=== PATIENT | male | born 1945 | race Caucasian/White ===

== ENCOUNTER 2021-06-26 08:47 | Emergency (ER) | payer OTHER ==
[~2021-06-26] VITALS: Ht 172.7 cm; Wt 81.1 kg
--- NOTE | 2021-06-26 08:50 | PHYS DOC ---
Adult General HPI HPI Patient is a 75-year-old male presenting via EMS for fall. Onset was just prior to arrival at home. Reports it was mechanical in nature, states he was trying to get up out of bed and got tangled on oxygen wires, lost his footing and subsequently fell towards left side. Reports he hit left shoulder and subsequently his left head. No reported loss of consciousness and denies any anticoagulant use but patient admitted bleeding and obvious ear trauma from fall. Because of this, EMS was contacted. On arrival, patient found to be hemodynamically stable on typical 2 L nasal cannula oxygen which he uses daily for COPD. Bleeding controlled with direct pressure prior to arrival, no end of the intervention required during transport to our facility Review of Systems Review of Systems Fourteen body systems of review of systems have been reviewed. See HPI for pertinent positives and negative responses, other rice all other systems are negative, non-pertinent or non-contributory Physical Exam Physical Exam Constitutional: Well developed, well nourished, no acute distress, non-toxic appearance. HENT: Normocephalic, atraumatic, left external ear with avulsion present to middle third of helix that does not protrude into antitragus area, oropharynx moist, no oral exudates, nose normal with nasal cannula in place. Eyes: PERRLA, EOMI, conjunctiva normal, no discharge. Neck: Normal range of motion, no tenderness, supple, no stridor. Cardiovascular: Heart rate regular, sinus rhythm, no murmurs rubs or gallops Lungs & Thorax: Bilateral breath sounds clear to auscultation Abdomen: Bowel sounds normal, soft, no tenderness, no masses, no pulsatile mas ses. Nonsurgical abdomen, no peritoneal signs Skin: Warm, dry, no erythema, no rash. Back: No tenderness, no CVA tenderness. Extremities: No tenderness, no cyanosis, no clubbing, ROM intact, no edema. Changes in hands consistent with rheumatoid arthritis Neurologic: Alert and oriented X 3, cranial nerves II through XII intact, normal motor & sensory function, no focal deficits noted. Psychologic: Affect normal, judgement normal, mood normal. Current Patient Data Vital Signs Vital Signs Date Time Temp Pulse Resp B/P (MAP) Pulse Ox O2 Delivery O2 Flow Rate FiO2 06/26/21 09:07 97.8 89 20 160/90 (113) 96 Nasal Cannula Vital Signs Date Time Temp Pulse Resp B/P (MAP) Pulse Ox O2 Delivery O2 Flow Rate FiO2 06/26/21 09:07 97.8 89 20 160/90 (113) 96 Nasal Cannula EKG EKG [] Radiology/Procedures Radiology/Procedures AP chest, right shoulder 3 views. HISTORY: Fall on the left side with left shoulder pain AP chest AP view was taken of the chest. There is no pneumothorax or pleural effusion. Lungs are free of infiltrates. Heart is normal in size. Mediastinum is not widened. A clavicle fracture is not identified. Left shoulder 3 views were taken left shoulder. 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 There is rotator cuff degeneration with loss of the space between the humeral head and acromium. There is no acute fracture or dislocation in the left shoulder. IMPRESSION: 1. 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 2. No fracture or dislocation left shoulder. 3. No pneumothorax or pleural effusion 4. No acute infiltrates. Electronically signed by: Kareem Rodriguez MD (06/26/2021 9:57 AM) [facility] //////////////////////////// CT brain without contrast. HISTORY: Fall, trauma left temporal external ear injury CT scan of brain was done without contrast. There is no old study for [facility]. Patient's had a previous large posterior craniotomy. An acute skull fracture is not identified. Sinuses are clear. There is edema in the parietal region on the right. A mass is possible. Correlation with old images or MRI would be recommended. Ventricles are normal in size. There is no shift of the midline. There is slight density along the falx which could be chronic or a small amount of acute subdural. MRI could be of benefit. IMPRESSION: 1. Large craniotomy defect posteriorly. 2. Possible mass near the craniotomy defect versus postop changes, correlation with an old study would be of benefit, MRI could be of benefit. 3. Edema versus encephalomalacia of the parietal lobe on each side. 4. Slight thickening along the falx possibly chronic although minimal hemorrhage is possible. 5. No other evidence of acute intracranial hemorrhage. Heart Score C/O Chest Pain: No Risk Factors: Risk Factors: DM, Current or recent (<one month) smoker, HTN, HLP, family history of CAD, obesity. Risk Scores: Risk Factors: DM, Current or recent (<one month) smoker, HTN, HLP, family history of CAD, obesity. Course & Med Decision Making Course & Med Decision Making ABCs unremarkable HPI physical exam and ER work-up nonconcerning for any emergent or surgical issues I disclosed with patient, and daughter at bedside need for close outpatient follow-up regarding indeterminant CT head imaging for potential mass versus postsurgical changes and findings of likely chronic left rotator cuff tear Joint decision made to pursue suturing of left ear, risks versus benefits and potential for nonunion/inadequate healing due to avascular nature of cartilage discussed at length. Patient is here sutured with satisfactory wound cosmesis Patient reports he has follow-up previously scheduled with his outpatient PC[facility] at the [facility] tomorrow, I advised him to keep this. Tetanus updated. No indication for antibiotics. Strict return precautions discussed at length prior to ER departure Dragon Disclaimer Dragon Disclaimer This electronic medical record was generated, in whole or in part, using a voice recognition dictation system. Laceration Repair Lac Repair Laceration #1: 2.5 centimeter linear wound of left ear. A time out was undertaken to determine that this was the correct patient and the correct procedure for this patient. The patients laceration was prepped and cleansed in the usual fashion. It was then copiously irrigated with normal saline with high pressure and high volume. 2 cc 2% lidocaine administered for anesthetic purposes The wound was explored in a clear and bloodless field to the base of the wound. There was no evidence of underlying fracture or foreign body. x6 6.0 sutures were placed in a simple interrupted fashion to close the wound. Excellent care was taken to achieve maximal cosmesis. The patient tolerated this procedure well there were no observed nor reported complications. Departure Departure: Impression: Primary Impression: Ear lobe laceration Additional Impressions: Hx of brain cancer Left shoulder pain Disposition: HOME / SELF CARE / HOMELESS Condition: STABLE Referrals: PCP,PEE (PCP) Additional Instructions: As discussed prior to ER departure, your vitals, physical exam and comprehensive ER work-up were concerning for left earlobe laceration that was repaired with tetanus shot updated today. You need to follow-up with your primary care physician on this for suture removal in upcoming 3 to 5 days. You are also f ound to have obvious brain changes given your history of brain cancer status post surgical intervention, there is no acute intracranial abnormalities noted today but concern about underlying mass versus typical postoperative changes with recommendations for outpatient MRI. This needs to be followed up with your primary care physician. Lastly, you complained of left shoulder pain, there were no bony abnormalities noted on chest and/or left shoulder radiographs but there was concerning findings for torn rotator cuff. This needs to be followed up with your primary care physician in the outpatient setting. You note you [facility], please keep this and review ER visit today. If any concerning signs or symptoms present prior to outpatient follow- up please not hesitate to come back for repeat evaluation. It was a pleasure to take care of you and I wish you the best going forward Problem Qualifiers HARSHA NELSON DO Jun 26, 2021 08:50
[2021-06-26 09:07] VITALS: BP 160/90
[2021-06-26] MEDS ORDERED: LIDOCAINE 2% 20 ML VIAL. ONE (09:27)
[2021-06-26] MEDS ORDERED: LIDOCAINE 2% 20 ML VIAL. IJ ONE (09:45)
--- NOTE | 2021-06-26 10:00 | RAD ---
AP chest, right shoulder 3 views. HISTORY: Fall on the left side with left shoulder pain AP chest AP view was taken of the chest. There is no pneumothorax or pleural effusion. Lungs are free of infil trates. Heart is normal in size. Mediastinum is not widened. A clavicle fracture is not identified. Left shoulder 3 views were taken left shoulder. 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 There is rotator cuff degeneration with loss of the space between the humeral head and acromium. There is no acute fracture or dislocation in the left shoulder. IMPRESSION: 1. 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 2. No fracture or dislocation left shoulder. 3. No pneumothorax or pleural effusion 4. No acute infiltrates. Electronically signed by: Kareem Rodriguez MD (06/26/2021 9:57 AM) [facility]
--- NOTE | 2021-06-26 10:04 | RAD ---
CT brain without contrast. HISTORY: Fall, trauma left temporal external ear injury CT scan of brain was done without contrast. There is no old study for comparison. Patient's had a pre vious large posterior craniotomy. An acute skull fracture is not identified. Sinuses are clear. There is edema in the parietal region on the right. A mass is possible. Correlation with old images or MRI would be recommended. Ventricles are normal in size. There is no shift of the midline. There is slig ht density along the falx which could be chronic or a small amount of acute subdural. MRI could be of benefit. IMPRESSION: 1. Large craniotomy defect posteriorly. 2. Possible mass near the craniotomy defect versus postop changes, correlation with an old study woul d be of benefit, MRI could be of benefit. 3. Edema versus encephalomalacia of the parietal lobe on each side. 4. Slight thickening along the falx possibly chronic although minimal hemorrhage is possible. 5. No other evidence of acute intracranial hemorrhage. PQRS Compliance Statement: One or more of the following individualized dose reduction techniques were utilized for this examinat ion: 1. Automated exposure control 2. Adjustment of the mA and/or kV according to patient size 3. Use of iterative reconstruction technique Electronically signed by: Kareem Rodriguez MD (06/26/2021 10:02 AM) [facility]
[2021-06-26] MEDS ORDERED: DIPHTH,PERTUSS(ACELL),TET TOX 0.5 ML DISP.SYRIN. VAX IM ONE (10:30)
[2021-06-26] MEDS ORDERED: IV RINGERS SOLUTION,LACTATED 1,000 ML IV ONE (10:45)
== END 2021-06-26 10:45 | disposition home or self-care (01) ==
LOC: ER 08:47
DX: S01.312A Laceration without foreign body of left ear, initial encounter (principal); M25.512 Pain in left shoulder; M06.9 Rheumatoid arthritis, unspecified; Z85.841 Personal history of malignant neoplasm of brain; W18.39XA Other fall on same level, initial encounter; Y93.89 Activity, other specified; Y92.89 Other specified places as the place of occurrence of the external cause; Y99.8 Other external cause status
CPT/HCPCS: 12011; 70450; 71045; 73030; 90471; 90715; 99284